=== PATIENT | female | born 1975 | race Caucasian/White ===

== ENCOUNTER → 2020-03-30 | Outpatient (REF) | payer BC ==
[2020-03-30 17:51] LABS: FOLATE > 24.0 NG/ML (>5.4); FREE T4 0.98 NG/DL (0.76-1.46)
[2020-04-05 14:08] LABS: ANTI MULLERIAN HORMONE 0.208 ng/mL (.); VITAMIN D 1,25 DIHYDROXY 81.5 pg/mL (19.9-79.3)
== END ==
LOC: M PLALAB 15:14
PROVIDERS: ATTEND Advanced Practice Midwife
DX: R30.0 Dysuria (principal); Z31.61 Procreative counseling and advice using natural family planning; L65.9 Nonscarring hair loss, unspecified

== ENCOUNTER → 2023-02-26 | Outpatient (CLI) | payer BC | LOC: M WUC 15:41 | PROVIDERS: ATTEND Physician Assistant | DX: O02.1 Missed abortion (principal); Z53.9 Procedure and treatment not carried out, unspecified reason ==